=== PATIENT | female | born 1990 | race Caucasian/White ===

== ENCOUNTER 2022-08-08 12:12 | Emergency (ER) | payer OTHER ==
[~2022-08-08] VITALS: Ht 165.1 cm; Wt 130.0 kg
[2022-08-08 12:13] VITALS: BP 170/90
[2022-08-08 13:33] LABS: HEMATOCRIT 41.8 % (36.0-47.0); MEAN CORPUSCULAR HEMOGLOBIN 29.2 pg (27.0-33.0); MEAN CORPUSCULAR HGB CONC 33.5 g/dl (32.0-36.5); MEAN CORPUSCULAR VOLUME 87.3 fl (80.0-96.0); PLATELET COUNT, AUTOMATED 447 10^3/uL (150-450); RED BLOOD COUNT 4.79 10^6/uL (4.00-5.40); WHITE BLOOD COUNT 7.5 10^3/uL (4.0-10.0)
[2022-08-08] MEDS ORDERED: VITMTA PO (13:40)
[2022-08-08] MEDS ORDERED: HOME MED LIST COMPLETE! XX SCH (13:40)
[2022-08-08] MEDS ORDERED: DESV25TA PO (13:40)
[2022-08-08] MEDS ORDERED: PROP10TA56 PO (13:40)
[2022-08-08 13:41] LABS: AMPHETAMINES LEVEL URINE NEGATIVE (NEGATIVE); BARBITURATES URINE NEGATIVE (NEGATIVE); BENZODIAZEPINES URINE NEGATIVE (NEGATIVE); CANNABINOIDS URINE NEGATIVE (NEGATIVE); COCAINE METABOLITE URINE NEGATIVE (NEGATIVE); PHENCYCLIDINE URINE NEGATIVE (NEGATIVE)
[2022-08-08 13:42] LABS: METHADONE URINE NEGATIVE (NEGATIVE); OPIATES URINE NEGATIVE (NEGATIVE)
[2022-08-08 13:56] LABS: ETHYL ALCOHOL (ETHANOL) 0.003 % (0.000-0.010)
[2022-08-08 13:58] LABS: ACETAMINOPHEN LEVEL < 2.0 UG/ML (10.0-20.0); ALBUMIN 3.8 G/DL (3.2-5.2); ALKALINE PHOSPHATASE 103 U/L (46-116); ALT/SGPT 28 U/L (7.0-40); AST/SGOT 23 U/L (<34); BILIRUBIN,DIRECT 0.1 MG/DL (<0.4); BILIRUBIN,TOTAL 0.4 MG/DL (0.3-1.2); BLOOD UREA NITROGEN 8 MG/DL (9-23); CALCIUM LEVEL 8.8 MG/DL (8.5-10.1); CARBON DIOXIDE LEVEL 26 MMOL/L (20-31); CHLORIDE LEVEL 106 MMOL/L (98-107); CREATININE FOR GFR 0.61 MG/DL (0.55-1.30); GLOMERULAR FILTRATION RATE > 60.0 (>60); GLUCOSE, FASTING 135 MG/DL (60-100); POTASSIUM SERUM 3.8 MMOL/L (3.5-5.1); SALICYLATE LEVEL < 3.0 MG/DL (<30); SODIUM LEVEL 139 MMOL/L (136-145); TOTAL PROTEIN 6.9 G/DL (5.7-8.2)
[2022-08-08 14:00] LABS: THYROID STIMULATING HORMONE 2.978 uIU/ML (0.55-4.78)
[2022-08-08 14:07] LABS: HCG, SERUM QUALITATIVE NEGATIVE (NEGATIVE)
[2022-08-08] MEDS ORDERED: HYDR-643 PO (14:09)
== END 2022-08-08 14:43 | disposition home or self-care (01) ==
LOC: M ED 12:12
DX: F41.9 Anxiety disorder, unspecified (principal); R45.851 Suicidal ideations; Z87.891 Personal history of nicotine dependence; Z79.810 Long term (current) use of selective estrogen receptor modulators (SERMs); Z79.899 Other long term (current) drug therapy